=== PATIENT | female | born 1955 | race Two or more races ===

== ENCOUNTER 2022-09-26 10:32 | Outpatient (CLI) | payer MEDICARE, SELFPAY | END 2022-09-26 10:33 | disposition home or self-care (01) | PROVIDERS: Visit Provider Family Medicine | DX: Z00.00 Encounter for general adult medical examination without abnormal findings (principal); I10 Essential (primary) hypertension; R73.03 Prediabetes; M62.838 Other muscle spasm; G62.9 Polyneuropathy, unspecified; Z13.6 Encounter for screening for cardiovascular disorders | CPT/HCPCS: 80053; 80061; 82607; 82746 ==

== ENCOUNTER 2023-10-27 12:47 | Outpatient (CLI) | payer MEDICARE, SELFPAY | END 2023-10-27 12:48 | disposition home or self-care (01) | PROVIDERS: PCP Family Medicine; Visit Provider Family Medicine | DX: I10 Essential (primary) hypertension (principal); R73.03 Prediabetes; Z13.220 Encounter for screening for lipoid disorders | CPT/HCPCS: 80053; 80061; 82043; 82570 ==

== ENCOUNTER 2024-04-01 09:54 | Outpatient (CLI) | payer MEDICARE, SELFPAY ==
--- NOTE | 2024-04-24 09:57 | W.PM.SLEEP ---
Sleep Study Details Details Interpreting Provider: Krystal Date of Sleep Study: 04/01/24 Sleep Study Details: STUDY TYPE:? Home unattended ? BMI:? 30.7 ORDERING PROVIDER:? Krystal INDICATION:? Concern about sleep apnea ? SLEEP SUMMARY:? 379 minutes monitored RESPIRATORY SUMMARY:? AHI 43.5 per rule 1A, 36.4 per CMS guidelines PERIODIC LIMB MOVEMENTS OF SLEEP:? Not recorded CARDIAC:? Range 70-91, mean 79.8 beats per minute IMPRESSION:? Severe obstructive sleep apnea RECOMMENDATION: AutoSet CPAP pressure 4-17
== END 2024-04-01 09:55 | disposition home or self-care (01) ==
LOC: SLEEP 09:54
PROVIDERS: PCP Family Medicine; Visit Provider Otolaryngology
DX: G47.33 Obstructive sleep apnea (adult) (pediatric) (principal)
CPT/HCPCS: 95806

== ENCOUNTER 2024-11-04 13:33 | Outpatient (CLI) | payer MEDICARE, SELFPAY | END 2024-11-04 13:34 | disposition home or self-care (01) | LOC: FRMREF 13:36 | PROVIDERS: PCP Family Medicine; Visit Provider Family Medicine | DX: G62.9 Polyneuropathy, unspecified (principal); M62.838 Other muscle spasm; R73.03 Prediabetes; M67.40 Ganglion, unspecified site | CPT/HCPCS: 82306 ==